=== PATIENT | female | born 1995 ===

== ENCOUNTER → 2017-11-15 | Outpatient (CLI) | payer OTHER ==
--- NOTE | 2017-11-15 14:53 | DIAGNOSTIC IMAGING REPORT ---
LOWER EXT JOINT WITHOUT CLINICAL HISTORY: RT HIP PAIN pain TECHNIQUE: Multi axial MRI acquisition. The patient declined prescanning arthrography COMPARISON STUDY: None FINDINGS: Signal characteristics the osseous structures are unremarkable. There is no evidence for bone marrow replacing process. The articular services appear unremarkable. The labrum appears to be intact. Signal characteristics of the muscle bundles surrounding the right as well as left hip appear symmetric. No abnormal infiltrative process is identified. There is no evidence for mass or adenopathy. Soft tissue structures of pelvis are unremarkable. Bladder is midline. The endometrium and junctional zone are intact. IMPRESSION: Normal study . The patient declined prescanning arthrography. The above report was generated using voice recognition software. It may contain grammatical, syntax or spelling errors. Electronically signed by: Terence Gomez M.D. 11/15/2017 2:52 PM Dictated Date/Time: 11/15/2017 2:46 PM
== END | disposition home or self-care (01) ==
LOC: C.MRIBC 12:47
PROVIDERS: ATTEND Orthopaedic Surgery Sports Medicine
DX: M25.559 Pain in unspecified hip (principal)